=== PATIENT | female | born 1980 | race Caucasian/White ===

== ENCOUNTER 2022-08-08 17:02 | Emergency (ER) | payer OTHER ==
[~2022-08-08] VITALS: Ht 160 cm; Wt 64.0 kg
[2022-08-08] MEDS ORDERED: LEXAPRO10 MG PO (17:12)
[2022-08-08] MEDS ORDERED: INDERAL10 MG PO (17:13)
[2022-08-08 17:37] LABS: BASO% 0.5 % (0-3); EOS% 0.5 % (0-8); HEMATOCRIT 43.4 % (37.0-47.0); HEMOGLOBIN 14.5 g/dl (12.0-16.0); IMMATURE GRANULOCYTES 0.2 % (0.0-5.0); LYMPH% 19.7 % (15-41); MEAN CORPUSCULAR HGB 32.1 pG CALC (26.0-32.0); MEAN CORPUSCULAR HGB CONC 33.4 g/dL CAL (32.0-36.0); MONO% 7.4 % (2-13); NEUT# 7.41 thou/uL (2.00-7.15); NEUT% 71.7 % (42-76); RED BLOOD COUNT 4.52 mill/uL (4.20-5.60); RED CELL DISTRI WIDTH 12.8 % (11.5-15.5)
[2022-08-08 17:48] LABS: ALKALINE PHOSPHATASE 81 u/l (38-126); ANION GAP 15 (6-22 (CALC)); BILIRUBIN, TOTAL 2.8 mg/dL (0.02-1.3); BUN 6 mg/dL (7-17); BUN/CREATININE RATIO 8 (12-20 (CALC)); CARBON DIOXIDE 23 mmol/l (22-30); CHLORIDE 105 mmol/l (95-108); CREATININE 0.7 mg/dL (0.5-1.0); GFR FOR AFR.AMER. > 60 ML/MIN (>=60 (CALC)); GFR OTHER RACES > 60 ML/MIN (>=60 (CALC)); POTASSIUM 3.3 mmol/l (3.5-5.1); SGOT/AST 30 u/l (14-36); SODIUM 139 mmol/l (137-146); TOTAL PROTEIN 7.7 g/dL (6.3-8.2)
[2022-08-08] MEDS ORDERED: XANAX0.25 MG PO (21:16)
[2022-08-08] MEDS ORDERED: PROTONIX40 M2 PO (21:16)
[2022-08-08 21:27] VITALS: BP 137/80
== END 2022-08-08 21:34 | disposition home or self-care (01) | DRG 313 ==
LOC: ED 17:02
PROVIDERS: Family Medicine
DX: R07.9 Chest pain, unspecified (principal); F41.9 Anxiety disorder, unspecified; F32.A Depression, unspecified; Z20.822 Contact with and (suspected) exposure to COVID-19
CPT/HCPCS: J2060; Q9967; S0164

== ENCOUNTER 2022-08-11 13:35 | Emergency (ER) | payer OTHER ==
[~2022-08-11] VITALS: Ht 160 cm; Wt 64.0 kg
[2022-08-11 13:35] VITALS: BP 158/88
[~2022-08-11 13:35] MED LIST: INDERAL10 MG PO; LEXAPRO10 MG PO; PROTONIX40 M2 PO; XANAX0.25 MG PO
== END 2022-08-11 16:00 | disposition left against medical advice (07) | DRG 951 ==
LOC: ED 13:35 → LWOBS 15:00
DX: Z53.21 Procedure and treatment not carried out due to patient leaving prior to being seen by health care provider (principal)

== ENCOUNTER 2022-08-13 15:48 | Emergency (ER) | payer OTHER ==
[~2022-08-13] VITALS: Ht 162.6 cm; Wt 64.0 kg
[2022-08-13 15:56] VITALS: BP 145/66
[2022-08-13 16:23] LABS: BASO% 0.4 % (0-3); EOS% 0.2 % (0-8); HEMATOCRIT 43.2 % (37.0-47.0); HEMOGLOBIN 14.4 g/dl (12.0-16.0); IMMATURE GRANULOCYTES 0.1 % (0.0-5.0); LYMPH% 8.9 % (15-41); MEAN CELL VOLUME 96.6 fL CALC (80.0-100.0); MEAN CORPUSCULAR HGB 32.2 pG CALC (26.0-32.0); MEAN CORPUSCULAR HGB CONC 33.3 g/dL CAL (32.0-36.0); MONO% 5.3 % (2-13); NEUT# 11.6 thou/uL (2.00-7.15); NEUT% 85.1 % (42-76); RED BLOOD COUNT 4.47 mill/uL (4.20-5.60); RED CELL DISTRI WIDTH 12.9 % (11.5-15.5)
[2022-08-13 16:33] LABS: ALKALINE PHOSPHATASE 78 u/l (38-126); ANION GAP 16 (6-22 (CALC)); BILIRUBIN, TOTAL 2.2 mg/dL (0.02-1.3); BUN 9 mg/dL (7-17); BUN/CREATININE RATIO 13 (12-20 (CALC)); CARBON DIOXIDE 19 mmol/l (22-30); CHLORIDE 109 mmol/l (95-108); CREATININE 0.7 mg/dL (0.5-1.0); GFR FOR AFR.AMER. > 60 ML/MIN (>=60 (CALC)); GFR OTHER RACES > 60 ML/MIN (>=60 (CALC)); POTASSIUM 3.7 mmol/l (3.5-5.1); SGOT/AST 26 u/l (14-36); SODIUM 140 mmol/l (137-146); TOTAL PROTEIN 7.5 g/dL (6.3-8.2)
[2022-08-13] MEDS ORDERED: PHENERGAN25 MG RE (19:22)
[2022-08-13 19:26] VITALS: BP 145/66
== END 2022-08-13 19:39 | disposition home or self-care (01) | DRG 392 ==
LOC: ED 15:48
PROVIDERS: Family Medicine
DX: R10.84 Generalized abdominal pain (principal); R11.2 Nausea with vomiting, unspecified; I10 Essential (primary) hypertension; F41.9 Anxiety disorder, unspecified; F32.A Depression, unspecified

== ENCOUNTER 2024-03-07 16:12 | Observation (INO) | payer OTHER ==
[~2024-03-07] VITALS: Ht 162.6 cm; Wt 66.2 kg
[~2024-03-07 16:12] MED LIST changes: +PHENERGAN25 MG RE
--- NOTE | 2024-03-07 17:06 | NUR ---
PT RETURNED TO LOBBY.
[2024-03-07] MEDS ORDERED: ONDANSETRON 4 MG/TAB ODT SL ONE (17:10)
[2024-03-07] MEDS ORDERED: LACTATED RINGER'S 1,000 ML IV STA (19:11)
[2024-03-07] MEDS ORDERED: PROMETHAZINE HCL 25 MG/ML AMP IV STA (19:11)
[2024-03-07] MEDS ORDERED: KETOROLAC TROMETHAMINE 30 MG/ML SDV IV STA (19:11)
[2024-03-07] MEDS ORDERED: Pantoprazole Sodium 40 MG VIAL (Protonix) IV STA (19:11)
--- NOTE | 2024-03-07 19:30 | NUR ---
PT NOTED WITH MULTIPLE EPISODES OF N/V X4, MD AWARE, ATTEMPT OF IV ACCESS AT THIS TIME. PT FOUND IN RM #9 AT THIS TIME.
[2024-03-07 19:45] LABS: BASO% 0.1 % (0-3); HEMATOCRIT 40.4 % (37.0-47.0); HEMOGLOBIN 13.5 g/dl (12.0-16.0); IMMATURE GRANULOCYTES 0.2 % (0.0-5.0); LYMPH% 5.9 % (15-41); MEAN CELL VOLUME 94.2 fL CALC (80.0-100.0); MEAN CORPUSCULAR HGB 31.5 pG CALC (26.0-32.0); MEAN CORPUSCULAR HGB CONC 33.4 g/dL CAL (32.0-36.0); MONO% 6.2 % (2-13); NEUT# 8.46 thou/uL (2.00-7.15); NEUT% 87.6 % (42-76); RED BLOOD COUNT 4.29 mill/uL (4.20-5.60)
[2024-03-07 19:59] LABS: ALBUMIN 4.8 g/dL (3.2-5.0); CREATININE 0.7 mg/dL (0.5-1.0); POTASSIUM 3.4 mmol/l (3.5-5.1); TOTAL PROTEIN 7.6 g/dL (6.3-8.2)
[2024-03-07 20:01] LABS: BILIRUBIN, TOTAL 0.6 mg/dL (0.02-1.3)
[2024-03-07] MEDS ORDERED: METOCLOPRAMIDE HCL 10 MG/2 ML SDV IV ONE (20:30)
--- NOTE | 2024-03-07 20:45 | NUR ---
IV ACCESS OBTAINED AT THIS TIME AFTER MULTIPLE ATTEMPTS BY STAFF, PT MEDICATED PER ORDERS, UPDATED ON CONTINUOUS PLAN OF CARE, AWAITING RELIEF OF N/V AT THIS TIME WITH EPIGASTRIC PAIN.
--- NOTE | 2024-03-07 21:45 | NUR ---
PT UPDATED ON CONTINUOUS PLAN OF CARE, URINE SPECIMEN COLLECTED, AWAITING ALL FURTHER RESULTS/ORDERS, PT VOICES MILD RELIEF AT THIS TIME.
[2024-03-07 22:11] LABS: URINE BLOOD DIPSTICK Large (NEGATIVE); URINE GLUCOSE - DIPSTICK Negative (NEGATIVE); URINE KETONE 40 mg/dL (NEGATIVE); URINE LEUK ESTERASE Negative (NEGATIVE); URINE NITRITE - DIPSTICK Negative (Negative); URINE PROTEIN - DIPSTICK 100 mg/dL (NEG-TRACE); URINE UROBILINOGEN - DIPSTICK 0.2 E.U./dL (0.2)
[2024-03-07 22:15] LABS: URINE COLOR Yellow
[2024-03-07 22:19] LABS: URINE WBC 0-2 WBC/hpf (0-5)
[2024-03-07 22:20] LABS: URINE MUCUS FEW hpf (NONE-FEW); URINE SQUAMOUS EPITHELIAL CELL FEW EPI/hpf (0-FEW)
[2024-03-07] MEDS ORDERED: ONDANSETRON HCl 4 MG/2 ML SDV IV ONE (22:25)
[2024-03-07] MEDS ORDERED: DEXAMETHASONE SOD. PHOSPHATE 10 MG/ML VIAL IV ONE (22:25)
[2024-03-07] MEDS ORDERED: SODIUM CHLORIDE 0.9% 1,000 ML IV ONE (22:25)
--- NOTE | 2024-03-07 22:35 | NUR ---
PT MEDICATED PER ORDERS, UPDATED ON CONTINUOUS PLAN O CARE, NAD NOTED, AWAITING MD FOR PLAN OF CARE.
[2024-03-07] MEDS ORDERED: ESCITALOPRAM OX20 MG PO (22:50)
[2024-03-07] MEDS ORDERED: INDERAL10 M1 PO (22:50)
[2024-03-07] MEDS ORDERED: LACTATED RINGER'S 1,000 ML IV ONE (22:50)
[2024-03-07] MEDS ORDERED: QUETIAPINE FUMA50 MG PO (22:50)
[2024-03-07] MEDS ORDERED: ONDANSETRON HCl 4 MG/2 ML SDV IV PRN (23:00)
[2024-03-07] MEDS ORDERED: LORazepam 2 MG/ML IV PRN (23:00)
[2024-03-07] MEDS ORDERED: ACETAMINOPHEN 325 MG/TAB PO PRN (23:00)
--- NOTE | 2024-03-07 23:05 | NUR ---
REPORT CALLED TO ADRIÁN CUEVAS ON MS2 AT THIS TIME.
--- NOTE | 2024-03-07 23:15 | NUR ---
PT TRANSPORTED TO [facility] [place] VIA W/C WITH TECH. PT VOICES APPRECIATION OF CARE, IVF RUNNING, PT REFUSED GOWN AT THIS TIME.
[2024-03-07 23:28] VITALS: BP 94/54
[2024-03-08] MEDS ORDERED: PIPERACILLIN Sodium-Tazobactam 3.375 GM in SODIUM CHLORIDE 0.9% 100 ML IV SCH
--- NOTE | 2024-03-08 00:30 | NUR ---
RECEIVED REPORT FROM ER NURSE MARQUISE BAUTISTA. PT TRANSFERRED TO [facility] RM 260 @2316 VIA WHEELCHAIR ON RM AIR. PT IS A/OX3, ABLE TO AMBULATE FROM WHEELCHAIR TO BED WITH STEADY BUT WEAK GAIT. PT DENIES ANY PAIN BUT DID C/O NAUSEA UPON ARRIVAL TO FLOOR. NURSING ASSESSMENT COMPLETED, SKIN INTACT AND PT PRESENTS FLUSHED. ABD IS DISTENDED BUT SOFT, TENDERNESS TO EPIGASTRIC REGION. PT STATES HAVING DIARRHEA EARLY TODAY BUT HAS NOT HAD AN EPISODE SINCE ARRIVAL TO ER. LAST VOMITTING EPISODE WAS IN ER. NURSING ASSESSMENT COMPLETED, PT WAS PLACED ON FALL RISK PRECAUTIONS DUE TO HX OF FALLS IN LAST 3 MONTHS AND WEAK GAIT. IV SITE APPEARS HEALTHY AND INTACT WITH IVF RUNNING PER EMAR. ADMINISTERED MEDICATION PER EMAR FOR NAUSEA, MEDICATION WAS UNEFFECTIVE. PT HAD EPISODE OF DRY HEAVING AND C/O INCREASED NAUSEA. INFORMED PHYSICIAN BATCH DUMPER AND RECEIVED VERBAL ORDER THAT WAS FAXED TO PHARMACY AND AWAITING VERIFICATION. EDUCATED PT ON PLAN OF CARE AND MED SCHEDULE. PT IS LAYING IN BED SEMI FOWLERS WITH LEGS ELEVATED. CALL LIGHT WIHTIN REACH AND SAFETY PRECAUTIONS IN PLACE.
[2024-03-08] MEDS ORDERED: METOCLOPRAMIDE HCL 10 MG/TAB PO ONE (00:45)
[2024-03-08 03:44] VITALS: BP 106/50
--- NOTE | 2024-03-08 04:52 | NUR ---
PT LAYING IN BED ON LEFT SIDE, RESTING COMFORTABLY AT THIS TIME. NO COMPLAINTS OF N/V. VSS. NO S/S OF DISTRESS. IVF RUNNING PER EMAR. CALL LIGHT WITHIN REACH AND SAFETY PRECAUTIONS IN PLACE.
[2024-03-08 06:50] VITALS: BP 119/55
--- NOTE | 2024-03-08 07:17 | NUR ---
PATIENT LAYING IN BED. PATIENT A&OX3 AND ABLE TO MAKE NEEDS KNOWN. PATIENT DENIES ANY NEEDS AT THIS TIME.
[2024-03-08] MEDS ORDERED: AMOX/K CLAV875 M1 PO (10:12)
[2024-03-08] MEDS ORDERED: ONDANSETRON4 MG PO (10:13)
[2024-03-08] MEDS ORDERED: METOCLOPRAMIDE10 MG PO (10:13)
--- NOTE | 2024-03-08 11:45 | NUR ---
Discharge instructions given. Patient verbalizes understanding of same. Discharged in stable condition via Ambulatory to Home with spouse. All belongings sent with pt. PATIENT IV REMOVED, PATIENT TOLERATED WELL.
== END 2024-03-08 11:40 | disposition home or self-care (01) | DRG 392 ==
LOC: ED 16:12 → ED-I 22:30 → ED 22:50 → MS2 22:51
PROVIDERS: Nurse Practitioner; ADMIT Internal Medicine; ATTEND Internal Medicine
DX: K52.9 Noninfective gastroenteritis and colitis, unspecified (principal); N83.202 Unspecified ovarian cyst, left side; I10 Essential (primary) hypertension; F41.9 Anxiety disorder, unspecified; F32.A Depression, unspecified; Z87.891 Personal history of nicotine dependence; Z20.822 Contact with and (suspected) exposure to COVID-19
CPT/HCPCS: G0378; J1100; J2060; J2405; J2470; J2543; J2550; J2765; Q9967

== ENCOUNTER 2024-03-10 09:58 | Inpatient (IN) | payer OTHER ==
[~2024-03-10] VITALS: Ht 160 cm; Wt 68.4 kg
[2024-03-10] VITALS (17 sets, daily range): BP systolic 129–174; BP diastolic 72–132
[~2024-03-10 09:58] MED LIST changes: +AMOX/K CLAV875 M1 PO; +ESCITALOPRAM OX20 MG PO; +INDERAL10 M1 PO; +METOCLOPRAMIDE10 MG PO; +ONDANSETRON4 MG PO; +QUETIAPINE FUMA50 MG PO
--- NOTE | 2024-03-10 10:00 | NUR ---
PATIENT TO ER ROOM 10 WITH STEADY GAIT. PATIENT NOTED ACTIVELY VOMITING AT THIS TIME.
[2024-03-10] MEDS ORDERED: SODIUM CHLORIDE 0.9% 1,000 ML IV ONE ×2 (10:20→13:05)
[2024-03-10] MEDS ORDERED: PROMETHAZINE HCL 25 MG/ML AMP IM ONE (10:20)
--- NOTE | 2024-03-10 10:22 | NUR ---
PATIENT MEDICATED FOR VOMITING SHE UIS EXPERIENCING.
[2024-03-10 10:30] LABS: BASO% 0.5 % (0-3); EOS% 0.1 % (0-8); HEMATOCRIT 35.8 % (37.0-47.0); HEMOGLOBIN 12.4 g/dl (12.0-16.0); IMMATURE GRANULOCYTES 0.2 % (0.0-5.0); LYMPH% 13.3 % (15-41); MEAN CELL VOLUME 92.7 fL CALC (80.0-100.0); MEAN CORPUSCULAR HGB 32.1 pG CALC (26.0-32.0); MEAN CORPUSCULAR HGB CONC 34.6 g/dL CAL (32.0-36.0); MONO% 7.2 % (2-13); NEUT# 8.1 thou/uL (2.00-7.15); NEUT% 78.7 % (42-76); RED BLOOD COUNT 3.86 mill/uL (4.20-5.60); RED CELL DISTRI WIDTH 13.7 % (11.5-15.5)
[2024-03-10] MEDS ORDERED: MORPHINE SULFATE 4 MG/ML VIAL IV ONE ×2 (10:45→12:40)
[2024-03-10] MEDS ORDERED: Pantoprazole Sodium 40 MG VIAL (Protonix) IV ONE (10:45)
[2024-03-10 10:48] LABS: ALBUMIN 4.4 g/dL (3.2-5.0); CREATININE 0.7 mg/dL (0.5-1.0); POTASSIUM 2.9 mmol/l (3.5-5.1); TOTAL PROTEIN 6.9 g/dL (6.3-8.2)
--- NOTE | 2024-03-10 11:42 | NUR ---
D/C instructions given with verbalization of understanding. Pt. discharged home in stable condition.
[2024-03-10] MEDS ORDERED: METOCLOPRAMIDE HCL 10 MG/2 ML SDV IV ONE (12:40)
--- NOTE | 2024-03-10 13:02 | NUR ---
PATIENT MEDICATED FOR ABDOMINAL PAIN X1.
[2024-03-10] MEDS ORDERED: PIPERACILLIN Sodium-Tazobactam 3.375 GM in SODIUM CHLORIDE 0.9% 100 ML IV ONE (13:05)
[2024-03-10] MEDS ORDERED: HALOPERIDOL LACTATE 5 MG/ML SDV IV ONE (13:05)
--- NOTE | 2024-03-10 13:05 | NUR ---
HALDOL ORDERED FOR THE PATIENT. PATIENT NOTED RESTING COMFORTABLY AT THIS TIME. MEDICATION NOT GIVEN. NO REPORTS OF NAUSEA OR VOMITING NOTED AT THIS TIME.
[2024-03-10] MEDS ORDERED: POTASSIUM CHLORIDE 20MEQ 100 ML IV ONE ×2 (13:10)
[2024-03-10] MEDS ORDERED: MAGNESIUM HYDROXIDE 30 ML UDC PO PRN (13:15)
[2024-03-10] MEDS ORDERED: ACETAMINOPHEN 325 MG/TAB PO PRN (13:15)
[2024-03-10] MEDS ORDERED: HYDROmorphone HCL 2 MG/AMP IV PRN (13:20)
[2024-03-10] MEDS ORDERED: PROMETHAZINE HCL 25 MG/ML AMP IV PRN (13:20)
[2024-03-10 13:24] LABS: URINE BILIRUBIN - DIPSTICK Negative (NEGATIVE); URINE BLOOD DIPSTICK Small (NEGATIVE); URINE GLUCOSE - DIPSTICK Negative (NEGATIVE); URINE KETONE 15 mg/dL (NEGATIVE); URINE LEUK ESTERASE Negative (NEGATIVE); URINE NITRITE - DIPSTICK Negative (Negative); URINE PROTEIN - DIPSTICK Negative (NEG-TRACE); URINE SPECIFIC GRAVITY 1.015; URINE UROBILINOGEN - DIPSTICK 0.2 E.U./dL (0.2)
[2024-03-10 13:26] LABS: URINE COLOR Yellow
[2024-03-10 13:51] LABS: URINE RBC 0-2 RBC/hpf (0-5); URINE SQUAMOUS EPITHELIAL CELL FEW EPI/hpf (0-FEW); URINE WBC 0-2 WBC/hpf (0-5)
[2024-03-10] MEDS ORDERED: D5 1/2 NaCL W/KCL 20MEQ 1,000 ML IV PRN (14:00)
--- NOTE | 2024-03-10 15:12 | NUR ---
REPORT GIVEN TO JOEL.
--- NOTE | 2024-03-10 15:22 | NUR ---
PATIENT ADMITTED FROM ED TO ROOM 290. PATIENT A&OX4 AND ABLE TO MAKE NEEDS KNOWN. PATIENT ORIENTED TO ROOM, CALL LIGHT AND SURROUNDINGS, PATIENT VERBALIZED UNDERSTANDING. PATIENT SPOUSE IS AT BEDSIDE. PATIENT DENIES ANY NEEDS AT THIS TIME. BED AT LOWEST LEVEL, TOP 2 SIDERAILS UP AND CALL LIGHT WITHIN REACH.
[2024-03-10] MEDS ORDERED: hydrALAZINE HCL 20 MG/ML VIAL(1 ML) IV PRN (16:55)
[2024-03-10] MEDS ORDERED: PIPERACILLIN Sodium-Tazobactam 3.375 GM in SODIUM CHLORIDE 0.9% 100 ML IV SCH ×2 (18:00→19:30)
[2024-03-10] MEDS ORDERED: ENOXAPARIN SODIUM 40 MG/0.4 ML SYR SC SCH (21:00)
[2024-03-10] MEDS ORDERED: DiphenhydrAMINE HCL 50 MG/ML SDV IV SCH (22:05)
[2024-03-11 01:02] VITALS: BP 161/77
[2024-03-11 05:08] VITALS: BP 157/88
[2024-03-11] MEDS ORDERED: ONDANSETRON HCl 4 MG/2 ML SDV IV PRN (05:50)
[2024-03-11 06:39] VITALS: BP 154/82
[2024-03-11 08:51] LABS: BASO% 0.5 % (0-3); HEMATOCRIT 33.6 % (37.0-47.0); HEMOGLOBIN 11.3 g/dl (12.0-16.0); IMMATURE GRANULOCYTES 0.1 % (0.0-5.0); LYMPH% 15.8 % (15-41); MEAN CELL VOLUME 94.4 fL CALC (80.0-100.0); MEAN CORPUSCULAR HGB 31.7 pG CALC (26.0-32.0); MEAN CORPUSCULAR HGB CONC 33.6 g/dL CAL (32.0-36.0); MONO% 6.1 % (2-13); NEUT# 7.38 thou/uL (2.00-7.15); NEUT% 77.5 % (42-76); RED BLOOD COUNT 3.56 mill/uL (4.20-5.60)
[2024-03-11 09:07] LABS: ALBUMIN 3.6 g/dL (3.2-5.0); BILIRUBIN, TOTAL 1.4 mg/dL (0.02-1.3); CREATININE 0.6 mg/dL (0.5-1.0); MAGNESIUM 1.6 mg/dL (1.6-2.3); TOTAL PROTEIN 5.8 g/dL (6.3-8.2)
[2024-03-11] MEDS ORDERED: HALOPERIDOL LACTATE 5 MG/ML SDV IV PRN (10:35)
[2024-03-11 10:40] VITALS: BP 145/85
[2024-03-11 15:25] VITALS: BP 108/51
[2024-03-11 18:06] VITALS: BP 114/61
--- NOTE | 2024-03-11 18:37 | NUR ---
Patient was vomitting upon arrival of shift. She is now recieving PRN Haladol which has relieved the symptom.
[2024-03-12 04:26] VITALS: BP 139/68
[2024-03-12 06:02] LABS: ALBUMIN 3.2 g/dL (3.2-5.0); ALKALINE PHOSPHATASE 74 u/l (38-126); ANION GAP 10 (6-22 (CALC)); BILIRUBIN, TOTAL 1.4 mg/dL (0.02-1.3); CARBON DIOXIDE 28 mmol/l (22-30); CHLORIDE 105 mmol/l (95-108); CREATININE 0.6 mg/dL (0.5-1.0); ESTIMATED GFR 113 ML/MIN (>=90 (CALC)); MAGNESIUM 1.7 mg/dL (1.6-2.3); SGOT/AST 119 u/l (14-36); SODIUM 139 mmol/l (137-146); TOTAL PROTEIN 5.3 g/dL (6.3-8.2)
[2024-03-12 06:06] LABS: BUN < 2 mg/dL (7-17); BUN/CREATININE RATIO < 3 (12-20 (CALC))
[2024-03-12 06:19] LABS: BASO% 0.7 % (0-3); EOS% 0.1 % (0-8); HEMATOCRIT 32.1 % (37.0-47.0); HEMOGLOBIN 10.8 g/dl (12.0-16.0); IMMATURE GRANULOCYTES 0.3 % (0.0-5.0); LYMPH% 27.4 % (15-41); MEAN CELL VOLUME 95.3 fL CALC (80.0-100.0); MEAN CORPUSCULAR HGB CONC 33.6 g/dL CAL (32.0-36.0); NEUT# 4.37 thou/uL (2.00-7.15); NEUT% 62.5 % (42-76); RED BLOOD COUNT 3.37 mill/uL (4.20-5.60); RED CELL DISTRI WIDTH 13.8 % (11.5-15.5)
--- NOTE | 2024-03-12 07:10 | NUR ---
PATIENT LAYING IN BED. PATIENT A&OX4 AND ABLE TO MAKE NEEDS KNOWN. SPOUSE AT BEDSIDE. PATIENT DENIES ANY NEEDS AT THIS TIME.
[2024-03-12 07:17] VITALS: BP 161/73
[2024-03-12] MEDS ORDERED: SODIUM CHLORIDE 0.9% 500 ML IV ONE (09:15)
[2024-03-12] MEDS ORDERED: POTASSIUM CHLORIDE 20MEQ 100 ML IV SCH (10:00)
[2024-03-12] MEDS ORDERED: SODIUM CHLORIDE 0.9% 500 ML IV SCH (10:00)
--- NOTE | 2024-03-12 11:49 | NUR ---
PATIENT LAYING IN BED. SPOUSE AT BEDSIDE. PATIENT IV SITE INFILTRATED, MD AWARE. PATIENT DENIES ANY NEEDS AT THIS TIME.
[2024-03-12] MEDS ORDERED: HALOPERIDOL LACTATE 5 MG/ML SDV IM PRN (13:11)
--- NOTE | 2024-03-12 16:00 | NUR ---
PATIENT LAYING IN BED. SPOUSE AT BEDSIDE. PATIENT DENIES ANY NEEDS AT THIS TIME.
[2024-03-12 16:58] VITALS: BP 130/67
[2024-03-12 18:30] VITALS: BP 139/74
--- NOTE | 2024-03-12 19:50 | NUR ---
PATIENT IN ROOM RESTING IN BED ON RIGHT SIDE. FAMILY AT BED SIDE. PATIENT RESPONDS TO VERBAL STIMULI. PATIENT COMPLAINS OF PAIN OF A 7, WILL REFER TO EMAR. BED SIDE ASSESSMENT COMPLETE. UNLABORED RESP, NO VISUAL SIGNS OF DISTRESS. ABNDOMEN SOFT. BOWEL SOUNDS PRESENT. BED AT LOWEST POSITION. CALL LIGHT WITH IN REACH.
[2024-03-13] VITALS: BP 146/79
--- NOTE | 2024-03-13 00:48 | NUR ---
PATIENT OBSERVED IN ROOM RESTING IN BED WITH EYES CLOSED ON RIGHT SIDE. EQUAL UNLAQBORED RESP. NO VISUAL SIGNS OF DISTRESS. BED AT LOWEST POSITION. CALL LIGHT WITH IN REACH.
[2024-03-13 03:28] LABS: C. DIFFICILE TOXIN A&B NEGATIVE (NEGATIVE)
[2024-03-13 04:00] VITALS: BP 138/72
--- NOTE | 2024-03-13 04:36 | NUR ---
PATIENT IN ROOM RESTING IN BED WITH EYES CLOSED. PATIENT CAN MAKE NEEDS KNOWN, NONE NEEDED AT THIS ENRIQUE. EQUAL UNLABORED RESP. NO VISUAL SIGNS OF DISTRESS. BED AT LOWEST POSITION. CALL LIGHT WITH IN REACH.
[2024-03-13 04:54] LABS: BASO% 0.3 % (0-3); EOS% 0.2 % (0-8); HEMATOCRIT 32.2 % (37.0-47.0); IMMATURE GRANULOCYTES 0.4 % (0.0-5.0); LYMPH% 23.2 % (15-41); MEAN CELL VOLUME 93.6 fL CALC (80.0-100.0); MEAN CORPUSCULAR HGB CONC 34.2 g/dL CAL (32.0-36.0); MONO% 10.2 % (2-13); NEUT# 6.58 thou/uL (2.00-7.15); NEUT% 65.7 % (42-76); RED BLOOD COUNT 3.44 mill/uL (4.20-5.60)
[2024-03-13 05:18] LABS: ALBUMIN 3.3 g/dL (3.2-5.0); ALKALINE PHOSPHATASE 83 u/l (38-126); ANION GAP 9 (6-22 (CALC)); BILIRUBIN, TOTAL 1.2 mg/dL (0.02-1.3); CARBON DIOXIDE 29 mmol/l (22-30); CHLORIDE 104 mmol/l (95-108); CREATININE 0.6 mg/dL (0.5-1.0); ESTIMATED GFR 113 ML/MIN (>=90 (CALC)); MAGNESIUM 1.8 mg/dL (1.6-2.3); POTASSIUM 2.9 mmol/l (3.5-5.1); SGOT/AST 52 u/l (14-36); SODIUM 139 mmol/l (137-146); TOTAL PROTEIN 5.5 g/dL (6.3-8.2)
[2024-03-13 05:27] LABS: BUN < 2 mg/dL (7-17); BUN/CREATININE RATIO 3 (12-20 (CALC))
[2024-03-13 06:34] VITALS: BP 132/85
--- NOTE | 2024-03-13 07:50 | NUR ---
PT LAYING IN BED RESTING WITH EYES CLOSED, PT AROUSES EASILY TO VERBAL STIMULI, PT IS A&OX 3, PUPILS PERRL, RESP. EVEN AND UNLABORED, LUNG SOUNDS ARE CLEAR, ABD DISTENDED AND SOFT WITH ACTIVE BOWEL SOUNDS, STRONG RADIAL AND PEDAL PULSES, RIJ TRIPLE LUMIN WITH FLUIDS INFUSING AT PRESCRIBED RATE, SAFETY MEASURES REINFORCED, CALL PATEL WITHIN REACH
[2024-03-13 11:27] VITALS: BP 139/77
--- NOTE | 2024-03-13 12:00 | NUR ---
PT SITTING UP IN THE RECLINER EATING LUNCH, PT IS TOELRATING WELL, SPOUSE AT BEDSIDE, PT REMINDED TO CALL FOR ASSISTANCE, CALL PATEL WITHIN REACH
--- NOTE | 2024-03-13 13:02 | NUR ---
PATIENT MEDICATED FOR ABDOMINAL PAIN X1.
[2024-03-13 15:24] VITALS: BP 140/83
--- NOTE | 2024-03-13 16:00 | NUR ---
PT SITTING UP IN THE RECLINER, NO S/S OF DISTRESS, CALL PATEL WITHIN REACH
[2024-03-13 18:53] VITALS: BP 134/77
--- NOTE | 2024-03-13 19:36 | NUR ---
PATIENT IN ROOM RESTING IN BED WITH EYES CLOSED.PATIENT RESPONDS TO VERBAL STIMULI. PATIENT STATED "IM FEELING NAUSEOUS" WILL REFER TO EMAR. BED SIDE ASSESSMENT COMPLETE. RESP EQUAL AND UNLABORED. NORMAL S1&S2. ABDOMEN SOFT. BOWEL SOUNDS PRESENT IN ALL 4 QUADRENTS. BED AT LOWEST POSITION. CALL LIGHT WITH IN REACH.
[2024-03-14 00:29] VITALS: BP 147/80
--- NOTE | 2024-03-14 00:33 | NUR ---
PATIENT OBSERVED TO BE RESTING IN BED ON LEFT SIDE. UNLABORED RESP, NO VISUAL SIGNS OF DISTRESS. BED AT LOWEST POSITON. CALL LIGTH WITH IN REACH.
--- NOTE | 2024-03-14 04:03 | NUR ---
PATIENT OBSERVED TO BE RESTING IN BED WITH EYES CLOSED. EQUAL UNLABORED RESP .NO VISUAL SIGNS OF DISTRESS. BED AT LOWEST POSITION. CALL LIGHT WITH IN REACH.
--- NOTE | 2024-03-14 05:29 | NUR ---
Patient voided 4 times throughout the night
[2024-03-14 05:30] VITALS: BP 138/85
[2024-03-14 06:16] LABS: BASO% 0.7 % (0-3); EOS% 1.2 % (0-8); HEMATOCRIT 31.7 % (37.0-47.0); HEMOGLOBIN 10.7 g/dl (12.0-16.0); IMMATURE GRANULOCYTES 0.4 % (0.0-5.0); LYMPH% 22.2 % (15-41); MEAN CELL VOLUME 93.2 fL CALC (80.0-100.0); MEAN CORPUSCULAR HGB 31.5 pG CALC (26.0-32.0); MEAN CORPUSCULAR HGB CONC 33.8 g/dL CAL (32.0-36.0); MONO% 10.8 % (2-13); NEUT# 5.39 thou/uL (2.00-7.15); NEUT% 64.7 % (42-76); RED BLOOD COUNT 3.4 mill/uL (4.20-5.60)
[2024-03-14 07:07] LABS: ALBUMIN 3.3 g/dL (3.2-5.0); ALKALINE PHOSPHATASE 76 u/l (38-126); ANION GAP 8 (6-22 (CALC)); BILIRUBIN, TOTAL 1.2 mg/dL (0.02-1.3); CARBON DIOXIDE 28 mmol/l (22-30); CHLORIDE 106 mmol/l (95-108); CREATININE 0.7 mg/dL (0.5-1.0); ESTIMATED GFR 109 ML/MIN (>=90 (CALC)); MAGNESIUM 1.7 mg/dL (1.6-2.3); POTASSIUM 3.1 mmol/l (3.5-5.1); SGOT/AST 35 u/l (14-36); SODIUM 139 mmol/l (137-146); TOTAL PROTEIN 5.5 g/dL (6.3-8.2)
[2024-03-14 07:09] LABS: BUN < 2 mg/dL (7-17); BUN/CREATININE RATIO 3 (12-20 (CALC))
[2024-03-14 07:10] VITALS: BP 156/84
--- NOTE | 2024-03-14 07:40 | NUR ---
PT SITTING UP IN THE RECLINER WATCHING TV, PT IS A&O X3, PUPILS PERRL, NORMAL S1 S2 HEART SOUNDS, RESP. EVEN AND UNLABORED, LUNG SOUNDS CLEAR IN ALL [place], ABD DISTENDED AND SOFT WITH ACTIVE BOWEL SOUNDS, RIJ TRIPLE LUMEN WITH FLUIDS INFUSING AT PRESCRIBED RATE, SAFETY MEASURES REINFORCED, CALL PATEL WITHIN REACH
[2024-03-14] MEDS ORDERED: POTASSIUM CHLORIDE 20 MEQ/TAB PO SCH (09:00)
[2024-03-14] MEDS ORDERED: ONDANSETRON4 MG/2 M1 PO (10:58)
[2024-03-14] MEDS ORDERED: AMOX/K CLAV875 M1 PO (10:59)
[2024-03-14 11:28] VITALS: BP 156/76
--- NOTE | 2024-03-14 12:00 | NUR ---
PT SITTING UP IN THE RECLINER EATING LUNCH, NO S/S OF DISTRESS, CALL PATEL WITHIN REACH
--- NOTE | 2024-03-14 13:55 | NUR ---
Discharge instructions given. Patient verbalizes understanding of same. Discharged in stable condition via Ambulatory to Home with spouse. All belongings sent with pt.
--- NOTE | 2024-03-17 10:33 | NUR ---
Discharge follow up call completed 03/17/24. Patient states she is doing well. Patient has been taking the antibiotic prescribed at discharge. She did not get the medication for nausea but did not need it. Patient has a follow up appointment scheduled with her surgeon. No needs or cocerns verbalized at this time.
== END 2024-03-14 13:57 | disposition home or self-care (01) | DRG 392 ==
LOC: ED 09:58 → ED-I 12:54 → ED 13:10 → MS2 13:11
PROVIDERS: Family Medicine; Nurse Practitioner Family; Surgery; ADMIT Internal Medicine; ATTEND Internal Medicine
PROC: 02HV33Z Insertion of Infusion Device into Superior Vena Cava, Percutaneous Approach (ICD-10-PCS; principal; 2024-03-12)
DX: K52.9 Noninfective gastroenteritis and colitis, unspecified (principal); E87.6 Hypokalemia; E86.0 Dehydration; I10 Essential (primary) hypertension; N83.202 Unspecified ovarian cyst, left side; F41.9 Anxiety disorder, unspecified; F32.A Depression, unspecified
CPT/HCPCS: J1171; J1200; J1630; J1650; J2405; J2470; J2543; J2550; J2765; J3480; Q9967

== ENCOUNTER 2024-05-01 07:47 | Day surgery (SDC) | payer OTHER ==
[~2024-05-01] VITALS: Ht 160 cm; Wt 70.3 kg
[~2024-05-01 07:47] MED LIST changes: +ALL DAY ALLG10 MG PO; +LEXAPRO20 MG PO; +ONDANSETRON4 MG/2 M1 PO; +[UNRECOGNIZED DRUG - OTHER] PO
[2024-05-01] MEDS ORDERED: FAMOTIDINE 10MG/ML 2ML SDV IV ONE (08:06)
[2024-05-01] MEDS ORDERED: SODIUM CHLORIDE 0.9% 1,000 ML IV ONE (08:06)
[2024-05-01 10:22] VITALS: BP 114/83
[2024-05-01] MEDS ORDERED: GLYCOPYRROLATE 0.2 MG/ML IV ONE (15:20)
[2024-05-01] MEDS ORDERED: PROPOFOL 200 MG/20 ML VIAL IV ONE (15:20)
[2024-05-01] MEDS ORDERED: LIDOCAINE HCL 2% 2ML SDV IV ONE (15:20)
== END 2024-05-01 10:15 | disposition home or self-care (01) | DRG 951 ==
LOC: ENDO 07:47 → ORM 11:15
PROVIDERS: ATTEND Surgery
PROC: 0DJD8ZZ Inspection of Lower Intestinal Tract, Via Natural or Artificial Opening Endoscopic (ICD-10-PCS; principal; 2024-05-01)
DX: Z09 Encounter for follow-up examination after completed treatment for conditions other than malignant neoplasm (principal); K64.8 Other hemorrhoids; I10 Essential (primary) hypertension; F41.9 Anxiety disorder, unspecified; F32.A Depression, unspecified; Z87.19 Personal history of other diseases of the digestive system
CPT/HCPCS: J1596